=== PATIENT | female | born 1960 | race Caucasian/White ===

== ENCOUNTER → 2016-08-21 | Outpatient (CLI) | payer OTHER ==
--- NOTE | 2016-08-21 13:41 | REPMRS ---
Patient History The patient states she has not had a clinical breast exam in over a year. Family history of colorectal cancer in maternal grandmother at age 50 or over and breast cancer in maternal grandmother at age 58. Took hormonal contraceptives for 5 years. Digital Woman Screen Mammo: August 21, 2016 - Exam #: [id number] Bilateral CC and MLO view(s) were taken. Technologist: Mara Olivo Technologist Prior study comparison: June 16, 2013, bilateral bilat screen digital mammo, performed at [facility] ([facility]). June 10, 2012, bilateral bilat screen digital mammo, performed at [facility] ([facility]). FINDINGS: The breast tissue is heterogeneously dense. This may lower the sensitivity of mammography. There has been no change in the appearance of the mammogram from the prior studies. There is a moderate amount of residual fibroglandular tissue which is fairly symmetric. There is no interval development of dominant mass, areas of architectural distortion, or clustered microcalcification typical of malignancy. ASSESSMENT: BI-RADS/ACR category 1 mammogram. Negative. Recommendation Routine screening mammogram in 1 year (for women over age 40). This mammogram was interpreted with the aid of an FDA-approved computer-aided dectection system. Electronically Signed By: Raj Barber MD 08/21/16 [id number]
== END ==
LOC: M WHC 12:55
PROVIDERS: ATTEND Nurse Practitioner Adult Health
DX: Z12.31 Encounter for screening mammogram for malignant neoplasm of breast (principal)

== ENCOUNTER → 2017-01-18 | Outpatient (REF) | payer OTHER | LOC: M LAB REF 15:39 | PROVIDERS: ATTEND Nurse Practitioner Family | DX: J02.9 Acute pharyngitis, unspecified (principal) ==

== ENCOUNTER → 2017-06-22 | Outpatient (REF) | payer OTHER | LOC: M LAB REF 17:07 | DX: J45.41 Moderate persistent asthma with (acute) exacerbation (principal); R05 Cough | CPT/HCPCS: 87633 ==

== ENCOUNTER → 2017-06-25 | Outpatient (REF) | payer OTHER | LOC: M LAB REF 13:09 | DX: J45.41 Moderate persistent asthma with (acute) exacerbation (principal); R05 Cough; J06.9 Acute upper respiratory infection, unspecified ==

== ENCOUNTER → 2017-07-01 | Outpatient (REF) | payer OTHER | LOC: M LAB REF 17:07 | DX: R05 Cough (principal) ==

== ENCOUNTER → 2017-07-25 | Outpatient (REF) | payer OTHER | LOC: M LAB 09:54 | DX: R05 Cough (principal) | CPT/HCPCS: 87184 ==

== ENCOUNTER 2017-08-13 11:46 | Day surgery (SDC) | payer OTHER ==
[2017-08-13] MEDS: SCOPOLAMINE 1MG TRANSDERMAL PATCH TOP (12:00)
[2017-08-13] MEDS ORDERED: LR 1,000 ML IV (12:00)
[2017-08-13] MEDS: IPRATROPIUM 0.5MG/ALBUTEROL 2.5MG INH SOL UD 3ML (DUONEB)(J7620) NEB (12:05)
[2017-08-13] MEDS ORDERED: SCOPOLAMINE 1MG TRANSDERMAL PATCH As Ordered (12:27)
[2017-08-13] MEDS ORDERED: PROPOFOL 200 MG/20 ML VIAL As Ordered ×2 (12:36→13:34)
[2017-08-13] MEDS ORDERED: LIDOCAINE 2% INJ 100 MG/5 ML SDV (FOR ANES.) As Ordered (12:36)
[2017-08-13] MEDS ORDERED: fentaNYL 100 MCG/2 ML INJECTION (J3010) As Ordered (12:36)
[2017-08-13] MEDS ORDERED: SUCCINYLCHOLINE 100 MG/5 ML SYRINGE (J0330) As Ordered ×2 (12:36→13:34)
[2017-08-13] MEDS ORDERED: MIDAZOLAM INJ 2 MG/2 ML VIAL (J2250) As Ordered (12:37)
[2017-08-13] MEDS ORDERED: ONDANSETRON 4MG/2ML VIAL (J2405) As Ordered (13:17)
[2017-08-13] MEDS ORDERED: dexameTHASONE 4 MG/ML 1ML VIAL (J1100) As Ordered ×2 (13:17)
[2017-08-13] MEDS: CETACAINE SPRAY 5GM As Ordered (13:18)
[2017-08-13] MEDS: EPINEPHrine 1MG/10ML SYRINGE 1.5IN As Ordered (13:39)
[2017-08-13] MEDS: THROMBIN SOLN 5,000 UNITS VIAL As Ordered (13:43)
[2017-08-13] MEDS: ALBUTEROL SULFATE 2.5 MG/0.5 ML INH NEB SOLN INH (14:13)
== END 2017-08-13 16:01 | disposition home or self-care (01) ==
LOC: M SDC 11:46
DX: R91.8 Other nonspecific abnormal finding of lung field (principal); R05 Cough; E03.9 Hypothyroidism, unspecified; E04.1 Nontoxic single thyroid nodule; K44.9 Diaphragmatic hernia without obstruction or gangrene; R06.02 Shortness of breath; J45.909 Unspecified asthma, uncomplicated; Z88.5 Allergy status to narcotic agent; Z90.710 Acquired absence of both cervix and uterus; Z87.891 Personal history of nicotine dependence
CPT/HCPCS: 31623

== ENCOUNTER 2017-08-18 16:12 | Inpatient (IN) | payer OTHER ==
[2017-08-18] MEDS: NS 1,000 ML IV (17:53)
[2017-08-18] MEDS: cefTRIAXone SOD 1 GM in D5W MINI-BAG PLUS 50 ML IV (17:53)
[2017-08-18] MEDS: methylPREDNISolone INJ 125 MG/2 ML VIAL (J2930) IV (17:53)
[2017-08-18 18:08] LABS: BASO # 0.1 10^3/uL (0.0-0.2); BASO % 0.3 % (0.0-1.0); EOS # 0.1 10^3/uL (0.0-0.50); EOS % 0.4 % (0.0-3.0); HEMATOCRIT 38.5 % (36.0-47.0); HEMOGLOBIN 12.4 g/dl (12.0-15.5); IMMATURE GRANULOCYTE % 1.2 % (0-3.0); LYMPH % 9.5 % (24.0-44.0); MEAN CORPUSCULAR HEMOGLOBIN 28.8 pg (27.0-33.0); MEAN CORPUSCULAR HGB CONC 32.2 g/dl (32.0-36.5); MEAN CORPUSCULAR VOLUME 89.3 fl (80.0-96.0); MONO # 1.3 10^3/uL (0.0-0.8); MONO % 6.4 % (0.0-5.0); NEUTROPHILS % 82.2 % (36.0-66.0); PLATELET COUNT, AUTOMATED 521 10^3/uL (150-450); RED BLOOD COUNT 4.31 10^6/uL (4.00-5.40); RED CELL DISTRIBUTION WIDTH 13.5 % (11.5-14.5); WHITE BLOOD COUNT 20.7 10^3/uL (4.0-10.0)
[2017-08-18 18:27] LABS: ALBUMIN 2.7 GM/DL (3.2-5.2); ALBUMIN/GLOBULIN RATIO 0.54 (1.00-1.93); ALKALINE PHOSPHATASE 76 U/L (45-117); ALT/SGPT 20 U/L (12-78); ANION GAP 5 MEQ/L (8-16); AST/SGOT 13 U/L (7-37); BILIRUBIN,TOTAL 0.3 MG/DL (0.2-1.0); BLOOD UREA NITROGEN 17 MG/DL (7-18); CALCIUM LEVEL 9.5 MG/DL (8.5-10.1); CARBON DIOXIDE LEVEL 29 MEQ/L (21-32); CHLORIDE LEVEL 106 MEQ/L (98-107); CREATININE FOR GFR 0.83 MG/DL (0.55-1.30); GLOMERULAR FILTRATION RATE > 60.0 (>51); GLUCOSE, FASTING 97 MG/DL (70-100); SODIUM LEVEL 140 MEQ/L (136-145); TOTAL PROTEIN 7.7 GM/DL (6.4-8.2)
[2017-08-18] MEDS: AZITHROMYCIN INJ 500 MG, VIAL MATE ADAPTER 1 EACH in D5W 250 ML IV (18:30)
[2017-08-18] MEDS: ACETAMINOPHEN TAB 650MG DOSE (2X325MG) PO (19:48)
[2017-08-18] MEDS: LEVALBUTEROL 1.25 MG/0.5 ML CONCENTRATE NEB INH (20:28)
[2017-08-18] MEDS: HEPARIN SOD (PORCINE) 5000 UNITS/ML VIAL SC (21:12)
[2017-08-19] MEDS: LEVALBUTEROL 1.25 MG/0.5 ML CONCENTRATE NEB INH ×4 (02:00→22:07)
[2017-08-19] MEDS: diphenhydrAMINE 50 MG CAP PO (05:12)
[2017-08-19] MEDS: HEPARIN SOD (PORCINE) 5000 UNITS/ML VIAL SC ×3 (05:13→21:02)
[2017-08-19] MEDS: methylPREDNISolone INJ 125 MG/2 ML VIAL (J2930) IV ×2 (05:13→17:12)
[2017-08-19] MEDS: NS 1,000 ML IV (13:59)
[2017-08-19] MEDS: cefTRIAXone SOD 1 GM in D5W MINI-BAG PLUS 50 ML IV (17:12)
[2017-08-19] MEDS: AZITHROMYCIN INJ 500 MG, VIAL MATE ADAPTER 1 EACH in D5W 250 ML IV (17:48)
[2017-08-20] MEDS: LEVALBUTEROL 1.25 MG/0.5 ML CONCENTRATE NEB INH ×4 (02:01→19:49)
[2017-08-20] MEDS: methylPREDNISolone INJ 125 MG/2 ML VIAL (J2930) IV ×2 (05:31→18:45)
[2017-08-20] MEDS: HEPARIN SOD (PORCINE) 5000 UNITS/ML VIAL SC ×3 (05:31→21:09)
[2017-08-20] MEDS: NS 1,000 ML IV ×2 (05:54→21:09)
[2017-08-20 07:10] LABS: BASO % 0.1 % (0.0-1.0); HEMATOCRIT 34.7 % (36.0-47.0); IMMATURE GRANULOCYTE % 0.9 % (0-3.0); LYMPH # 1.4 10^3/uL (1.5-4.5); LYMPH % 12.3 % (24.0-44.0); MEAN CORPUSCULAR HGB CONC 31.7 g/dl (32.0-36.5); MEAN CORPUSCULAR VOLUME 88.3 fl (80.0-96.0); MONO # 0.8 10^3/uL (0.0-0.8); MONO % 6.7 % (0.0-5.0); NEUTROPHILS # 8.9 10^3/uL (1.8-7.7); PLATELET COUNT, AUTOMATED 526 10^3/uL (150-450); RED BLOOD COUNT 3.93 10^6/uL (4.00-5.40); RED CELL DISTRIBUTION WIDTH 13.8 % (11.5-14.5); WHITE BLOOD COUNT 11.2 10^3/uL (4.0-10.0)
[2017-08-20] MEDS: BENZONATATE 100 MG CAP PO ×3 (11:26→21:09)
[2017-08-20] MEDS: cefTRIAXone SOD 1 GM in D5W MINI-BAG PLUS 50 ML IV (16:36)
[2017-08-20] MEDS: AZITHROMYCIN INJ 500 MG, VIAL MATE ADAPTER 1 EACH in D5W 250 ML IV (18:45)
[2017-08-21] MEDS: LEVALBUTEROL 1.25 MG/0.5 ML CONCENTRATE NEB INH ×4 (02:36→19:58)
[2017-08-21] MEDS: HEPARIN SOD (PORCINE) 5000 UNITS/ML VIAL SC ×3 (06:06→21:48)
[2017-08-21] MEDS: NS 1,000 ML IV (09:56)
[2017-08-21] MEDS: BENZONATATE 100 MG CAP PO ×3 (09:56→21:48)
[2017-08-21] MEDS: predniSONE 20 MG TAB PO (09:56)
[2017-08-21] MEDS: guaiFENesin ER 600 MG TAB PO ×2 (13:43→21:48)
[2017-08-21] MEDS: SODIUM CHLORIDE NASAL 0.65% SPRAY BTL (OCEAN) (13:43)
[2017-08-21] MEDS: cefTRIAXone SOD 1 GM in D5W MINI-BAG PLUS 50 ML IV (16:21)
[2017-08-21] MEDS: AZITHROMYCIN INJ 500 MG, VIAL MATE ADAPTER 1 EACH in D5W 250 ML IV (17:59)
[2017-08-22] MEDS: LEVALBUTEROL 1.25 MG/0.5 ML CONCENTRATE NEB INH ×4 (01:12→19:33)
[2017-08-22] MEDS: HEPARIN SOD (PORCINE) 5000 UNITS/ML VIAL SC ×3 (06:34→21:06)
[2017-08-22 06:50] LABS: BASO % 0.2 % (0.0-1.0); EOS % 0.4 % (0.0-3.0); HEMATOCRIT 33.8 % (36.0-47.0); HEMOGLOBIN 10.9 g/dl (12.0-15.5); IMMATURE GRANULOCYTE % 1.2 % (0-3.0); LYMPH # 3.5 10^3/uL (1.5-4.5); LYMPH % 37.3 % (24.0-44.0); MEAN CORPUSCULAR HEMOGLOBIN 28.5 pg (27.0-33.0); MEAN CORPUSCULAR HGB CONC 32.2 g/dl (32.0-36.5); MEAN CORPUSCULAR VOLUME 88.3 fl (80.0-96.0); MONO # 0.8 10^3/uL (0.0-0.8); MONO % 8.3 % (0.0-5.0); NEUTROPHILS # 4.9 10^3/uL (1.8-7.7); NEUTROPHILS % 52.6 % (36.0-66.0); PLATELET COUNT, AUTOMATED 433 10^3/uL (150-450); RED BLOOD COUNT 3.83 10^6/uL (4.00-5.40); RED CELL DISTRIBUTION WIDTH 14.1 % (11.5-14.5); WHITE BLOOD COUNT 9.4 10^3/uL (4.0-10.0)
[2017-08-22 07:12] LABS: ANION GAP 5 MEQ/L (8-16); BLOOD UREA NITROGEN 18 MG/DL (7-18); CALCIUM LEVEL 8.4 MG/DL (8.5-10.1); CARBON DIOXIDE LEVEL 27 MEQ/L (21-32); CHLORIDE LEVEL 113 MEQ/L (98-107); CREATININE FOR GFR 0.65 MG/DL (0.55-1.30); GLOMERULAR FILTRATION RATE > 60.0 (>51); GLUCOSE, FASTING 86 MG/DL (70-100); POTASSIUM SERUM 3.7 MEQ/L (3.5-5.1); SODIUM LEVEL 145 MEQ/L (136-145)
[2017-08-22] MEDS: BENZONATATE 100 MG CAP PO ×3 (09:25→21:05)
[2017-08-22] MEDS: guaiFENesin ER 600 MG TAB PO ×2 (09:25→21:05)
[2017-08-22] MEDS: predniSONE 20 MG TAB PO (09:25)
[2017-08-22] MEDS: NS 1,000 ML IV (09:26)
[2017-08-22] MEDS: cefTRIAXone SOD 1 GM in D5W MINI-BAG PLUS 50 ML IV (17:48)
[2017-08-22] MEDS: AZITHROMYCIN INJ 500 MG, VIAL MATE ADAPTER 1 EACH in D5W 250 ML IV (18:33)
[2017-08-23] MEDS: NS 1,000 ML IV (04:26)
[2017-08-23] MEDS: HEPARIN SOD (PORCINE) 5000 UNITS/ML VIAL SC ×3 (05:08→21:08)
[2017-08-23] MEDS: LEVALBUTEROL 1.25 MG/0.5 ML CONCENTRATE NEB INH ×3 (07:46→20:00)
[2017-08-23] MEDS: ADVAIR HFA 115/21MCG INHALER INH ×2 (09:00→20:10)
[2017-08-23] MEDS: predniSONE 20 MG TAB PO (09:24)
[2017-08-23] MEDS: BENZONATATE 100 MG CAP PO ×3 (09:24→20:22)
[2017-08-23] MEDS: guaiFENesin ER 600 MG TAB PO ×2 (09:24→20:22)
[2017-08-23] MEDS: CEFDINIR 300 MG CAP (OMNICEF) PO ×2 (11:45→20:22)
[2017-08-23] MEDS: AZITHROMYCIN 250 MG TAB PO (11:45)
[2017-08-24] MEDS: LEVALBUTEROL 1.25 MG/0.5 ML CONCENTRATE NEB INH ×2 (02:00→07:48)
[2017-08-24] MEDS: HEPARIN SOD (PORCINE) 5000 UNITS/ML VIAL SC (05:51)
[2017-08-24] MEDS: ADVAIR HFA 115/21MCG INHALER INH (07:47)
[2017-08-24] MEDS: CEFDINIR 300 MG CAP (OMNICEF) PO (08:14)
[2017-08-24] MEDS: predniSONE 20 MG TAB PO (08:15)
[2017-08-24] MEDS: guaiFENesin ER 600 MG TAB PO (08:15)
[2017-08-24] MEDS: BENZONATATE 100 MG CAP PO (08:15)
[2017-08-24] MEDS: AZITHROMYCIN 250 MG TAB PO (08:15)
== END 2017-08-24 11:30 | disposition home or self-care (01) | DRG 195 ==
LOC: M MSPAV 16:12 → M PED 08-19 18:59
DX: J14 Pneumonia due to Hemophilus influenzae (principal); J45.909 Unspecified asthma, uncomplicated; E89.0 Postprocedural hypothyroidism; Z90.710 Acquired absence of both cervix and uterus; Z88.5 Allergy status to narcotic agent; Z87.891 Personal history of nicotine dependence; Z79.899 Other long term (current) drug therapy

== ENCOUNTER → 2017-09-09 | Outpatient (CLI) | payer OTHER | LOC: M SMT 15:05 | DX: J14 Pneumonia due to Hemophilus influenzae (principal) | CPT/HCPCS: 71046 ==

== ENCOUNTER → 2018-08-16 | Outpatient (REF) | payer OTHER ==
[~2018-08-16] MED LIST: ACET-716 PO; ALBU83IN INH; AUGM500T34 PO; BENA25TA10 PO; CHERSYP3 PO; ERYT-52 PO; IPRA0.00 INH; LEVO100T54 PO; TESS100C PO; VENTAER INH
[2018-08-16 13:04] LABS: INFLUENZA A AMPLIFICATION NEGATIVE (NEGATIVE); INFLUENZA B AMPLIFICATION NEGATIVE (NEGATIVE)
== END ==
LOC: M LAB REF 12:08
PROVIDERS: ATTEND Nurse Practitioner Adult Health
DX: R50.9 Fever, unspecified (principal)

== ENCOUNTER → 2019-06-07 | Outpatient (REF) | payer OTHER | LOC: M LAB REF 13:33 | PROVIDERS: ATTEND Nurse Practitioner Adult Health | DX: N39.0 Urinary tract infection, site not specified (principal) ==

== ENCOUNTER → 2019-08-03 | Outpatient (REF) | payer OTHER | LOC: M LAB REF 12:31 | PROVIDERS: ATTEND Registered Nurse | DX: N39.0 Urinary tract infection, site not specified (principal) ==

== ENCOUNTER → 2020-02-14 | Outpatient (REF) | payer OTHER | LOC: M LAB REF 12:22 | PROVIDERS: ATTEND Nurse Practitioner Adult Health | DX: N39.0 Urinary tract infection, site not specified (principal) ==

== ENCOUNTER → 2020-11-16 | Outpatient (CLI) | payer OTHER ==
--- NOTE | 2020-11-16 15:57 | REP ---
INDICATION: SOB COMPARISON: 08/15/2018 TECHNIQUE: PA and lateral. FINDINGS: The mediastinum and cardiac silhouette are normal. The lung diggs are clear and without acute consolidation, effusion, or pneumothorax. The skeletal structures are intact and normal. IMPRESSION: No acute cardiopulmonary process. <Electronically signed by Derek Barone > 11/16/20 [id number]
== END ==
LOC: M RAD 15:18
PROVIDERS: ATTEND Physician Assistant Medical
DX: R06.02 Shortness of breath (principal)

== ENCOUNTER → 2020-11-25 | Outpatient (CLI) | payer OTHER ==
--- NOTE | 2020-11-25 16:13 | REP ---
INDICATION: CALF PAIN , POST SURGICAL COMPARISON: None. TECHNIQUE: Real time compression and duplex Doppler interrogation of the left lower extremity deep venous system is performed, including the right common femoral vein.Compression of the left peroneal and posterior tibial veins is performed, which are not well seen due to edema. FINDINGS: The left common femoral, superficial femoral and popliteal veins are fully compressible with transducer pressure and demonstrate normal spontaneous and phasic flow, without evidence of deep venous thrombosis.The right common femoral vein demonstrates no thrombus.The visualized left peroneal and posterior tibial veins demonstrate no thrombus. IMPRESSION: No evidence of deep venous thrombosis of the left lower extremity femoral popliteal venous system.No thrombus in the visualized left peroneal and posterior tibial veins. <Electronically signed by Raj Barber > 11/25/20 [id number]
== END ==
LOC: M RAD 15:12
PROVIDERS: ATTEND Orthopaedic Surgery
DX: Z47.89 Encounter for other orthopedic aftercare (principal); M17.12 Unilateral primary osteoarthritis, left knee; M79.662 Pain in left lower leg

== ENCOUNTER → 2021-10-08 | Outpatient (REF) | payer OTHER ==
[~2021-10-08] MED LIST changes: +ALBU2.5V10 INH; -ALBU83IN INH; -ERYT-52 PO; +ERYT-88 PO
[2021-10-08 17:56] LABS: AMORPHOUS SEDIMENT LARGE (NEGATIVE); BACTERIA, URINE AUTO NEGATIVE (NEGATIVE); MUCUS, URINE LARGE (NEGATIVE); RBC, URINE AUTO 0 /HPF (0-3); SQUAMOUS EPITHELIAL CELL UR AU 10 /HPF (0-6); WBC, URINE AUTO 0 /HPF (0-3)
== END ==
LOC: M LAB REF 16:35
PROVIDERS: ATTEND Nurse Practitioner Adult Health
DX: R35.0 Frequency of micturition (principal)

== ENCOUNTER → 2022-02-10 | Outpatient (REF) | payer OTHER ==
[2022-02-10 18:27] LABS: AMYLASE 36 U/L (25-115); LIPASE 114 U/L (73-393)
== END ==
LOC: M LAB REF 16:16
PROVIDERS: ATTEND Nurse Practitioner Adult Health
DX: R10.9 Unspecified abdominal pain (principal)

== ENCOUNTER → 2022-03-16 | Outpatient (REF) | payer OTHER | LOC: M WUC 09:41 | PROVIDERS: ATTEND Physician Assistant | DX: J06.9 Acute upper respiratory infection, unspecified (principal); J45.901 Unspecified asthma with (acute) exacerbation ==

== ENCOUNTER → 2022-03-18 | Outpatient (CLI) | payer OTHER | LOC: M RAD 08:27 | PROVIDERS: ATTEND Nurse Practitioner Adult Health | DX: R05.9 Cough, unspecified (principal); B97.4 Respiratory syncytial virus as the cause of diseases classified elsewhere ==

== ENCOUNTER → 2022-06-08 | Outpatient (CLI) | payer OTHER | LOC: M WUC 11:41 | PROVIDERS: ATTEND Nurse Practitioner Adult Health | DX: R04.2 Hemoptysis (principal) ==

== ENCOUNTER → 2022-07-07 | Outpatient (CLI) | payer OTHER ==
[~2022-07-07] MED LIST changes: +BREO1INH3 INH; +FAMO40TA3 PO; +SEMA0.5P SC
== END ==
LOC: M LABSMTC 07:34
PROVIDERS: ATTEND Anesthesiology
DX: Z01.812 Encounter for preprocedural laboratory examination (principal)

== ENCOUNTER 2022-07-09 10:23 | Day surgery (SDC) | payer OTHER ==
[~2022-07-09] VITALS: Ht 175.3 cm; Wt 102.7 kg
[~2022-07-09 10:23] MED LIST changes: +LIDOCAINE 2% 100MG/5ML SDV (FOR ANES.) As Ordered ONE; +NS 1,000 ML IV ONE; +propofoL 200 MG/20 ML VIAL As Ordered ONE
[2022-07-09] MEDS ORDERED: propofoL 200 MG/20 ML VIAL As Ordered ONE (11:17)
[2022-07-09 12:05] VITALS: BP 137/60
== END 2022-07-09 11:55 | disposition home or self-care (01) ==
LOC: M OPP 10:23
PROVIDERS: ATTEND Surgery
DX: Z12.11 Encounter for screening for malignant neoplasm of colon (principal); Z80.0 Family history of malignant neoplasm of digestive organs; Z12.6 Encounter for screening for malignant neoplasm of bladder; K44.9 Diaphragmatic hernia without obstruction or gangrene; K29.70 Gastritis, unspecified, without bleeding; J45.909 Unspecified asthma, uncomplicated; E03.9 Hypothyroidism, unspecified; Z87.891 Personal history of nicotine dependence; Z79.51 Long term (current) use of inhaled steroids; Z79.52 Long term (current) use of systemic steroids; Z79.899 Other long term (current) drug therapy; Z79.890 Hormone replacement therapy; Z88.5 Allergy status to narcotic agent

== ENCOUNTER → 2022-08-06 | Outpatient (REF) | payer OTHER ==
[~2022-08-06] MED LIST changes: -LIDOCAINE 2% 100MG/5ML SDV (FOR ANES.) As Ordered ONE; -NS 1,000 ML IV ONE; -propofoL 200 MG/20 ML VIAL As Ordered ONE
[2022-08-10 19:11] LABS: PERCENT SATURATION 13.4 % (13.2-45.0)
[2022-08-10 19:13] LABS: FERRITIN 102.1 NG/ML (7.3-270.7)
== END ==
LOC: M LAB REF 12:08
PROVIDERS: ATTEND Nurse Practitioner Adult Health
DX: R53.83 Other fatigue (principal)

== ENCOUNTER → 2023-02-16 | Outpatient (REF) | payer OTHER ==
[2023-02-16 19:03] LABS: PERCENT SATURATION 19.2 % (13.2-45.0)
[2023-02-16 19:06] LABS: FERRITIN 129.2 NG/ML (7.3-270.7)
[2023-02-16 19:34] LABS: HEMATOCRIT 42.5 % (36.0-47.0)
== END ==
LOC: M LAB REF 18:20
PROVIDERS: ATTEND Nurse Practitioner Adult Health
DX: E61.1 Iron deficiency (principal)

== ENCOUNTER → 2023-04-17 | Outpatient (REF) | payer OTHER | LOC: M LAB REF 17:37 | PROVIDERS: ATTEND Physician Assistant | DX: N10 Acute pyelonephritis (principal) ==

== ENCOUNTER → 2023-08-18 | Outpatient (REF) | payer OTHER ==
[2023-08-18 13:37] LABS: HEMATOCRIT 39.5 % (36.0-47.0)
[2023-08-18 13:55] LABS: PERCENT SATURATION 26.9 % (13.2-45.0)
[2023-08-18 13:58] LABS: FERRITIN 159.4 NG/ML (7.3-270.7)
== END ==
LOC: M LAB REF 13:04
PROVIDERS: ATTEND Nurse Practitioner Adult Health
DX: E61.1 Iron deficiency (principal)

== ENCOUNTER → 2023-11-01 | Outpatient (CLI) | payer OTHER | LOC: M WUC 10:21 | PROVIDERS: ATTEND Nurse Practitioner Adult Health | DX: R05.1 Acute cough (principal) ==

== ENCOUNTER → 2024-02-21 | Outpatient (CLI) | payer OTHER | LOC: M WUC 11:13 | PROVIDERS: ATTEND Nurse Practitioner Adult Health | DX: R07.82 Intercostal pain (principal) ==

== ENCOUNTER → 2024-02-25 | Outpatient (CLI) | payer OTHER | LOC: M PLAIMG 09:53 | PROVIDERS: ATTEND Nurse Practitioner Adult Health | DX: R07.81 Pleurodynia (principal); M47.816 Spondylosis without myelopathy or radiculopathy, lumbar region ==

== ENCOUNTER → 2024-02-28 | Outpatient (CLI) | payer OTHER | LOC: M WUC 14:34 | PROVIDERS: ATTEND Nurse Practitioner Adult Health | DX: M25.521 Pain in right elbow (principal) ==

== ENCOUNTER → 2025-03-09 | Outpatient (CLI) | payer OTHER | LOC: M WUC 11:14 | DX: M25.561 Pain in right knee (principal) ==

== ENCOUNTER → 2025-03-09 | Outpatient (REF) | payer OTHER ==
[2025-03-09 15:00] LABS: C REACTIVE PROTEIN QUANTITATIV 0.61 MG/DL (<1.0)
[2025-03-13 16:41] LABS: BORRELIA SPECIES DNA NOT DETECTED (NOT DETECT)
[2025-03-13 19:02] LABS: LYME TOTAL ANTIBODY CIA <= 0.90 Index (<=0.90)
== END ==
LOC: M LAB REF 14:12
DX: M25.50 Pain in unspecified joint (principal)

== ENCOUNTER → 2025-05-06 | Outpatient (CLI) | payer OTHER | LOC: M RAD 09:07 | PROVIDERS: ATTEND Internal Medicine | DX: R05.9 Cough, unspecified (principal); J06.9 Acute upper respiratory infection, unspecified; J45.901 Unspecified asthma with (acute) exacerbation ==

== ENCOUNTER → 2025-05-06 | Outpatient (REF) | payer OTHER | LOC: M LAB REF 08:38 | PROVIDERS: ATTEND Registered Nurse | DX: N39.0 Urinary tract infection, site not specified (principal) ==